=== PATIENT | female | born 1965 | race Hispanic/Latino ===

== ENCOUNTER 2017-11-29 15:14 | Emergency (ER) | payer OTHER ==
[2017-11-29] MEDS ORDERED: IBUPROFEN 800 MG TAB ONE (16:51)
[2017-11-29] MEDS ORDERED: CYCLOBENZAPRINE HCL 10 MG TABLET ONE (16:51)
== END 2017-11-29 17:43 | disposition home or self-care (01) ==
LOC: EDH 15:14
DX: S13.8XXA Sprain of joints and ligaments of other parts of neck, initial encounter (principal); S40.212A Abrasion of left shoulder, initial encounter; E78.5 Hyperlipidemia, unspecified; M19.90 Unspecified osteoarthritis, unspecified site; Z98.890 Other specified postprocedural states; V43.53XA Car driver injured in collision with pick-up truck in traffic accident, initial encounter; Y93.89 Activity, other specified; Y92.89 Other specified places as the place of occurrence of the external cause; Y99.8 Other external cause status
CPT/HCPCS: 72040; 73030